=== PATIENT | male | born 1950 | race Caucasian/White ===

== ENCOUNTER 2020-11-10 08:00 | Outpatient (CLI) | payer OTHER ==
[2020-11-10 15:10] LABS: BASOPHILS # (AUTO) 0.1 10^3/uL (0.0-0.1); BASOPHILS % (AUTO) 0.7 %; EOSINOPHILS # (AUTO) 0.1 10^3/uL (0.0-0.7); EOSINOPHILS % (AUTO) 0.7 %; HCT - HEMATOCRIT 51.1 % (42.0-52.0); LYMPHOCYTES # (AUTO) 0.8 10^3/uL (1.5-3.5); LYMPHOCYTES % (AUTO) 12.2 %; MEAN CORPUSCULAR HEMOGLOBIN 31.9 pg (27.0-31.0); MEAN CORPUSCULAR HGB CONC 33.3 g/dL (32.0-36.0); MEAN CORPUSCULAR VOLUME 95.9 fL (80.0-94.0); MEAN PLATELET VOLUME 9.6 fL (7.4-11.4); MONOCYTES # (AUTO) 0.5 10^3/uL (0.0-1.0); MONOCYTES % (AUTO) 6.8 %; NEUTROPHILS # (AUTO) 5.4 10^3/uL (1.5-6.6); NEUTROPHILS % (AUTO) 79.3 %; PLT - PLATELET COUNT 307 10^3/uL (130-450); RED BLOOD COUNT 5.33 10^6/uL (4.70-6.10); RED CELL DISTRIBUTION WIDTH 12.8 % (12.0-15.0); WHITE BLOOD COUNT 6.8 x10^3/uL (4.8-10.8)
[2020-11-10 15:16] LABS: CALCIUM 9.3 mg/dL (8.5-10.3); CREATININE 0.8 mg/dL (0.6-1.2); POTASSIUM 4.5 mmol/L (3.5-5.0)
== END 2020-11-10 23:59 | disposition home or self-care (01) ==
LOC: LAB.S 08:00
PROVIDERS: ATTEND Emergency Medicine
DX: I10 Essential (primary) hypertension (principal)
CPT/HCPCS: 36415; 80048; 81001; 85025; 87086

== ENCOUNTER 2021-06-01 08:32 | Outpatient (CLI) | payer OTHER | END 2021-06-01 08:33 | disposition critical access hospital (66) | LOC: EMS 08:32 | DX: R53.1 Weakness (principal); R47.81 Slurred speech; R27.8 Other lack of coordination | CPT/HCPCS: A0425; A0429 ==

== ENCOUNTER 2021-06-01 09:11 | Inpatient (IN) | payer OTHER ==
[2021-06-01] MEDS ORDERED: SODIUM CHLORIDE 0.9% 1,000 ML IV STA (09:22)
--- NOTE | 2021-06-01 09:24 | ED Physician Documentation ---
PD HPI FOCAL NEURO - Stated complaint Stated Complaint: STROKE LIKE SX - History obtained from History obtained from: Patient - History of Present Illness Timing - onset: Yesterday (afternoon yesterday) Timing - duration: Days (1) Timing - details: Still present Severity of deficit: Mild Weakness: Hand, Right. No: Face, Leg Numbness: Face, Hand, Right. No: Leg Associated symptoms: Other (trouble articulating words). No: Headache, Nausea / vomiting, Head injury, Chest pain Contributing factors: negative: Anticoagulated, Atrial fibrillation Baseline status: positive: A&OX3, ambulatory, indep Similar symptoms before: Has not had sx before Recently seen: Not recently seen Review of Systems Constitutional: denies: Fever, Chills Nose: denies: Rhinorrhea / runny nose, Congestion Throat: denies: Sore throat Cardiac: denies: Chest pain / pressure, Palpitations Respiratory: denies: Dyspnea, Cough GI: denies: Abdominal Pain, Nausea, Vomiting Neurologic: reports: Focal weakness (right arm fumbly use and some weakness. Mild right leg maybe with walking. DYsarthria with talking. He states was able to swallow.). denies: Altered mental status, Headache, Head injury, LOC Psychiatric: denies: Depressed Endocrine: denies: Weight loss, Easy bruising / bleeding Immunocompromised: denies: Immunocompromised PD PAST MEDICAL HISTORY - Past Medical History Cardiovascular: None Respiratory: None Endocrine/Autoimmune: None - Allergies Allergies/Adverse Reactions: Allergies Allergy/AdvReac Type Severity Reaction Status Date / Time No Known Drug Allergies Allergy Verified 06/01/21 09:21 - Living Situation Living Situation: reports: Alone Living Arrangement: reports: At home - Social History Does the pt smoke?: Yes Does the pt drink ETOH?: No Does the pt have substance abuse?: No - Family History Family history: reports: CAD - Immunizations Immunizations are current?: Yes - POLST Patient has POLST: No PD ED PE NORMAL - Vitals Vital signs reviewed: Yes - General General: Alert and oriented X 3, No acute distress, Well developed/nourished - HEENT HEENT: Atraumatic, PERRL, EOMI, Moist mucous membranes, Pharynx benign - Neck Neck: Supple, no meningeal sign, No adenopathy, No bruit - Cardiac Cardiac: RRR, No murmur - Respiratory Respiratory: Clear bilaterally - Abdomen Abdomen: Soft, Non tender - Derm Derm: Normal color, Warm and dry - Neuro Neuro: Alert and oriented X 3, Other (right arm with good gross motor of squeezing and pull, but is fumbly with fine motor such as grasping and writing. Foot gross motore good. heel to perez is wobbly. ). No: manufacturing clerk 2-12 intact (trouble with word articulation. ), Normal speech (content is good, but he does have trouble with articulation with some slurring of words. ) NIHSS - Level of Consciousness Level of consciousness: (0) Alert, Keenly responsive LOC Questions: (0) Answers both Q's correct LOC Commands: (0) Performs both correctly - Gaze Best Gaze: (0) Normal - Visual Visual: (0) No loss - Facial Palsy Facial Palsy: (0) Normal, symmetrical movement - Motor Arms (both separate) Motor Arm (right): (0) No drift Motor Arm (left): (0) No drift - Motor Legs (both separate) Motor Leg (right): (0) No drift Motor Leg (left): (0) No drift - Limb Ataxia Limb Ataxia: (2) Present in 2 limbs - Sensory Sensory: (0) Normal - Best Language Best Language: (0) No aphasia - Dysarthria Dysarthria: (1) [id number]-[id number] dysarthria - Extinction and Inattention (formally neg Extinction and inattention: (0) No abnormality - Total Score/Results Total Score/Result: 3 Results - Vitals Vitals: Vital Signs - 24 hr 06/01/21 06/01/21 09:21 11:28 Temperature 37.0 C Heart Rate 92 70 Respiratory 18 13 Rate Blood Pressure 169/84 H 142/72 H O2 Saturation 99 100 Oxygen O2 Source Room air - EKG (time done) 09:29 Rate: Rate (enter#) (97) Rhythm: NSR [place]: Normal Intervals: Normal SD QRS: Normal, LVH Ischemia: Normal ST segments. No: ST elevation c/w ischemia, ST depression - Labs Labs: Laboratory Tests 06/01/21 06/01/21 06/01/21 09:32 09:32 09:32 WBC 6.4 RBC 4.88 Hgb 15.2 Hct 43.8 MCV 89.8 MCH 31.1 H MCHC 34.7 RDW 12.2 Plt Count 233 MPV 9.5 Neut # (Auto) 5.5 Lymph # (Auto) 0.5 L [place] # (Auto) 0.4 Eos # (Auto) 0.0 Baso # (Auto) 0.0 Absolute Nucleated RBC 0.00 Nucleated RBC % 0.0 ESR 6 Sodium 131 L Potassium 3.8 Chloride 97 L Carbon Dioxide 25 Anion Gap 9.0 BUN 10 Creatinine 0.7 Estimated GFR (MDRD) 112 Glucose 114 H Calcium 8.9 Magnesium 2.1 Total Bilirubin 0.9 AST 24 ALT 22 Alkaline Phosphatase 95 Total Protein 7.0 Albumin 4.4 Globulin 2.6 Albumin/Globulin Ratio 1.7 Lipase 37 Ethyl Alcohol < 5.0 - Rads (name of study) head CT angio Radiology: Prelim report reviewed (no acute findings. Possible stenosis of distal vertebral artery. No mass effects. no bleed. ), See rad report neck angio Radiology: Prelim report reviewed (no stenoses. ), See rad report PD MEDICAL DECISION MAKING - ED course Complexity details: reviewed results, re-evaluated patient (still same symptoms. ), considered differential (persistent symptoms since yesterday afternoon. Presume small infarct versus bleed vs MS or other structural process. ), d/w patient, d/w solar sales consultant (talke with hospitalist about admission for further workup.) Departure - Departure Disposition: 66 [facility] DC/Xfer Clinical Impression: Dysarthria, Right arm weakness Cerebrovascular accident (CVA) Qualifiers: CVA mechanism: unspecified Qualified Code(s): I63.9 - Cerebral infarction, unspecified Condition: Stable Record reviewed to determine appropriate education?: Yes Discharge Date/Time: 06/01/21 14:10
[2021-06-01] MEDS ORDERED: IOVERSOL 320 100 ML VIAL IVP ONE ×2 (09:33→13:26)
[2021-06-01 09:37] LABS: BASOPHILS % (AUTO) 0.3 %; EOSINOPHILS % (AUTO) 0.3 %; HCT - HEMATOCRIT 43.8 % (42.0-52.0); HGB - HEMOGLOBIN 15.2 g/dL (14.0-18.0); LYMPHOCYTES # (AUTO) 0.5 10^3/uL (1.5-3.5); LYMPHOCYTES % (AUTO) 7.1 %; MEAN CORPUSCULAR HEMOGLOBIN 31.1 pg (27.0-31.0); MEAN CORPUSCULAR HGB CONC 34.7 g/dL (32.0-36.0); MEAN CORPUSCULAR VOLUME 89.8 fL (80.0-94.0); MEAN PLATELET VOLUME 9.5 fL (7.4-11.4); MONOCYTES # (AUTO) 0.4 10^3/uL (0.0-1.0); MONOCYTES % (AUTO) 6.4 %; NEUTROPHILS # (AUTO) 5.5 10^3/uL (1.5-6.6); NEUTROPHILS % (AUTO) 85.7 %; PLT - PLATELET COUNT 233 10^3/uL (130-450); RED BLOOD COUNT 4.88 10^6/uL (4.70-6.10); RED CELL DISTRIBUTION WIDTH 12.2 % (12.0-15.0); WHITE BLOOD COUNT 6.4 x10^3/uL (4.8-10.8)
[2021-06-01 09:49] LABS: ALBUMIN 4.4 g/dL (3.2-5.5); ALBUMIN/GLOBULIN RATIO 1.7 (1.0-2.2); ALKALINE PHOSPHATASE 95 IU/L (42-121); ALT ALANINE AMINOTRANSFERASE 22 IU/L (10-60); AST ASPARTATE AMINOTRANSFERASE 24 IU/L (10-42); BILIRUBIN,TOTAL 0.9 mg/dL (0.2-1.0); BUN - BLOOD UREA NITROGEN 10 mg/dL (6-20); CALCIUM 8.9 mg/dL (8.5-10.3); CARBON DIOXIDE - CO2 25 mmol/L (21-32); CHLORIDE 97 mmol/L (101-111); CREATININE 0.7 mg/dL (0.6-1.2); ETOH - ETHANOL < 5.0 mg/dL; GFR - MDRD 112 (>89); GLUCOSE 114 mg/dL (70-100); LIPASE 37 U/L (22-51); MAGNESIUM 2.1 mg/dL (1.7-2.8); POTASSIUM 3.8 mmol/L (3.5-5.0); SODIUM 131 mmol/L (135-145)
--- NOTE | 2021-06-01 12:19 | CT Report ---
PROCEDURE: ANGIO HEAD W/WO INDICATIONS: L sided facial droop CONTRAST: IV CONTRAST: Optiray 320 ml: 80 PO CONTRAST: *NO PO CONTRAST TECHNIQUE: Precontrast 4.5 mm thick angled axial sections acquired from the foramen magnum to the vertex. Afte r the administration of intravenous contrast, 1 mm thick sections acquired through the [place] of [place] is. Postcontrast 4.5 mm thick sections then re-acquired from the foramen magnum to the vertex. 3-di mensional nokmaar-ktrgjabpz-cwsaxuaqqn (MIP) and/or volume rendering reformats were acquired of the c entral intracranial vasculature. For radiation dose reduction, the following was used: automated ex posure control, adjustment of mA and/or kV according to patient size. COMPARISON: FINDINGS: Image quality: Excellent. Anterior circulation: Intracranial internal carotid arteries are normal in size and flow. Mild supr aclinoid internal carotid artery calcifications and subsequent stenosis are noted. The flow within th e paired anterior cerebral arteries is normal and symmetric. The flow within the middle cerebral art eries is normal and symmetric. The anterior communicating artery is seen. No aneurysms are seen. Posterior circulation: Visualized portions of the vertebral arteries demonstrate normal caliber, and join to form a normal appearing basilar artery. Flow within the posterior cerebral arteries is norm al and symmetric. No aneurysms are seen. There is a left vertebral artery dominance. 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 The ventricular system and cortical sulci demonstrate atrophy, consistent for patient's stated age. There are areas of hypodensity in the periventricular and subcortical white matter. There is no acut e intra or extra-axial fluid collection. No acute hemorrhage, mass lesion or midline shift. Brainst em is unremarkable. Globes are symmetrical. Sinuses are aerated. Osseous structures are intact. IMPRESSION: 1. No acute intracranial process. 2. Mild atrophy and chronic microvascular ischemic changes. 3. 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 Focus of high-grade stenosis/distal occlusion cannot be excluded. Reviewed by: Ale Perdomo MD on 06/01/2021 12:17 PM PST Approved by: Ale Perdomo MD on 06/01/2021 12:17 PM PST Station ID: [id number]
--- NOTE | 2021-06-01 12:20 | CT Report ---
PROCEDURE: ANGIO NECK W INDICATIONS: L sided facial droop, L neck pain CONTRAST: IV CONTRAST: Optiray 320 ml: 80 PO CONTRAST: *NO PO CONTRAST TECHNIQUE: After the administration of intravenous contrast, 1.5 mm axial sections acquired from the aortic arch to the [place] of [place]. Coronal 3-D maximum intensity projection (MIP) and/or volume rendering ref ormats were then performed. For radiation dose reduction, the following was used: automated exposur e control, adjustment of mA and/or kV according to patient size. COMPARISON: CTA. 06/01/2021 FINDINGS: Image quality: Excellent. The origins of the left and right common, right internal and bilateral external carotid arteries demo nstrate no areas of hemodynamically significant stenosis, vascular occlusion or aneurysmal dilation. Less than 50% stenosis is present at the origin of the left internal carotid artery. Origin of the le ft vertebral artery and right vertebral artery demonstrate no areas of hemodynamically significant st enosis, vascular occlusion or aneurysmal dilation. 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 Focus of high-grade stenosis/occlusion cannot be excluded particula rly at the distal most aspect. Aortic arch demonstrates conventional anatomy. Limited, visualized por tions of the subclavian vasculature are unremarkable. IMPRESSION: There are no areas of hemodynamically significant stenosis, vascular occlusion or aneurysmal dilation within the neck vasculature. The estimate of stenosis included in the report of the imaging study was calculated using the NASCET method CLINICAL RECOMMENDATION STATEMENTS: In patients <35 years with an ITN detected on CT, MRI, or extrathyroidal ultrasound, the Committee re commends further evaluation with dedicated thyroid ultrasound if the nodule is "e1 cm and has no susp icious imaging features, and if the patient has normal life expectancy. In patients "e35 years with an ITN detected on CT, MRI, or extrathyroidal ultrasound, the Committee r ecommends further evaluation with dedicated thyroid ultrasound if the nodule is "e1.5 cm and has no s uspicious imaging features, and if the patient has normal life expectancy. (ACR, 2014) Reviewed by: Ale Perdomo MD on 06/01/2021 12:19 PM PST Approved by: Ale Perdomo MD on 06/01/2021 12:19 PM PST Station ID: [id number]
[2021-06-01] MEDS ORDERED: ASPIRIN CHEW 81 MG TABLET PO STA (12:59)
[2021-06-01] MEDS ORDERED: SODIUM CHLORIDE FLUSH 0.9% 10 ML SYRINGE IVP PRN (13:00)
[2021-06-01] MEDS ORDERED: ONDANSETRON 4 MG/2 ML VIAL IVP PRN (13:10)
[2021-06-01] MEDS ORDERED: ACETAMINOPHEN 325 MG TABLET PO PRN (13:10)
--- NOTE | 2021-06-01 13:26 | HISTORY & PHYSICAL EXAMINATION ---
Chief Complaint - Chief Complaint Chief Complaint: dysarthria and right weakness History of Present Illness - Admitted From Admitted From:: Medical floor - History Obtained From Records Reviewed: [employer] and ER note History obtained from: pt Exam Limitations: no - History of Present Illness HPI Comment/Other: This is 71-yrs old male with significant medical history of HTN, who was brought by EMS, complain of dysarthria and right side weakness since yesterday. pt report since yesterday afternoon, he can not speak, now pt still present slurred speech. he also report he can not write with his right hand and felt weakness as well. pt report he has no issue to swallow meal. pt report he has no issue to walk as far. Pt report he still smoke cigarette but he denies taking alcohol. Pt also denies chest pain, headache, fever, chill, shortness of breath. CTA of head and neck no acute Intracranial process. Routine laboratory test was unremarkable except sodium 131. In ER, Patient is afebrile, otherwise patient is hemodynamic stable. Discussed the care goal with the patient, patient hope to have DNR History - Past Medical History Cardiovascular: reports: Hypertension - Family & Social History Family History: Mother: , Father: Family History Comment/Other: Patient's father at age 38 with stroke, patient's mother at age 91 likely due to aging Social History Notes: Patient report he is still smoking with cigarette, he denies alcohol or drug issue Meds/Allgy - Allergies Allergies/Adverse Reactions: Allergies Allergy/AdvReac Type Severity Reaction Status Date / Time No Known Drug Allergies Allergy Verified 06/01/21 09:21 Review of Systems - Constitutional Constitutional: denies: Fever, Chills - Eyes Eyes: denies: Pain - Ears, Nose & Throat Ears, Nose & Throat: denies: Ear pain - Cardiovascular Cariovascular: denies: Palpitations, Chest pain, Syncope, Exertional dyspnea, Decr. exercise tolerance - Respiratory Respiratory: denies: Cough, Wheezing, SOB at rest, SOB with exertion - Gastrointestinal Gastrointestinal: denies: Abdominal pain, Diarrhea, Nausea, Vomiting - Neurological Neurological: reports: Focal weakness, Incoordination, Slurred speech. denies: Headache, Dizziness, Abnormal gait, Seizures - Psychiatric Psychiatric: denies: Depression Prior Level of Functionality: Full independent Exam - Vital Signs Vital Signs: Vital Signs x48h Temp Pulse Resp BP Pulse Ox 06/01/21 11:28 70 13 142/72 H 100 06/01/21 09:21 37.0 C 92 18 169/84 H 99 - Physical Exam General Appearance: positive: No acute distress, Alert. negative: Lethargic Eyes Bilateral: positive: Normal inspection, No lid inflammation ENT: positive: ENT inspection nml, No signs of dehydration. negative: Purulent nasal drainage Neck: positive: Nml inspection, Trachea midline. negative: Thyromegaly, Tracheal deviation Respiratory: positive: Chest non-tender, No respiratory distress, Other (Bilaterally diminished lung sound) Cardiovascular: positive: Regular rate & rhythm, No murmur. negative: Tachycardia, Bradycardia, Systolic murmur, Diastolic murmur Peripheral Pulses: positive: 2+ Abdomen: positive: Non-tender, Nml bowel sounds, No distention. negative: Tenderness Back: positive: Nml inspection Skin: positive: Color nml, Warm, Dry. negative: Cyanosis Extremities: positive: Non-tender, Nml appearance, Other (Weakness on right upper extremity) Neurologic/Psychiatric: positive: Oriented x3, Sensation nml, Mood/affect nml, Weakness, Slurred/abnml speech. negative: Motor nml (Right upper extremity weakness), Disoriented to person, Disoriented to place, Disoriented to time, Sensory loss, Facial droop, Depressed mood/affect Sepsis Event Note (H) - Evaluation Current Stage of Sepsis: Ruled out Conclusion/Plan - Problem List (1) Cerebrovascular accident (CVA) Conclusion/Plan: pt had dysarthria and right upper extremity weakness on yesterday afternoon, pt still present dysarthria and right upper extremity weakness now, TPA was not given at ER because of time passed. CTA of head and neck reveal no acute proc ess. EKG show sinus rhythm. Patient was give one-time aspirin in the ER. Plan: continue Aspirin and add Lipitor pt report he has no issue for swallow, order regular diet now, will closely monitor to see if need adjust for his diet. will finish MRI of brain and ECHO study PT/OT for pt order Tele monitor pt, and lipid panel study. Qualifiers: CVA mechanism: unspecified Qualified Code(s): I63.9 - Cerebral infarction, unspecified (2) Hyponatremia Conclusion/Plan: Na is 131, Pt was given one liter of NS in ER, will give pt another one liter of NS. it is likely caused by hypovolemia. continue lab monitor (3) HTN (hypertension) Conclusion/Plan: Patient take lisinopril in the home, we will hold lisinopril, add hydralazine as needed, let pt rise his blood pressure for his stroke at first 24 hours. - Lab Results Fish Bones: 06/01/21 09:32 06/01/21 09:32 Core Measures - Anticipated LOS I expect patient to be DC'd or transferred within 96 hours.: Yes - DVT/VTE - Prophylaxis VTE/DVT Device ordered at admit?: Yes VTE/DVT Prophylaxis med ordered at admit?: Yes
[2021-06-01 14:24] LABS: B. PARAPERTUSSIS- RESP PCR PAN NOT DETECTED; B. PERTUSSIS- RESP PCR PANEL NOT DETECTED; C. PNEUMONIAE- RESP PCR PANEL NOT DETECTED; CORONAVIRUS 229E-RESP PCR NOT DETECTED; CORONAVIRUS HKU1-RESP PCR NOT DETECTED; CORONAVIRUS NL63-RESP PCR NOT DETECTED; CORONAVIRUS OC43-RESP PCR NOT DETECTED; HUMAN METAPNEUMOVIRUS NOT DETECTED; INFLUENZA A- RESP PCR PANEL NOT DETECTED; INFLUENZA B - RESP PCR PANEL NOT DETECTED; M. PNEUMONIAE- RESP PCR PANEL NOT DETECTED; PARAINFLUENZA VIRUS 1 NOT DETECTED; PARAINFLUENZA VIRUS 2 NOT DETECTED; PARAINFLUENZA VIRUS 3 NOT DETECTED; PARAINFLUENZA VIRUS 4 NOT DETECTED; RHINOVIRUS/ENTEROVIRUS NOT DETECTED; RSV- RESP PCR PANEL NOT DETECTED; SARS-CoV-2 -RESP PCR PANEL NOT DETECTED
[2021-06-01] MEDS ORDERED: LORazepam 2 MG/ML VIAL IVP STA (14:50)
[2021-06-01] MEDS ORDERED: hydrALAZINE INJ 20 MG/ML VIAL IVP PRN (14:52)
[2021-06-01] MEDS ORDERED: SODIUM CHLORIDE 0.9% 1,000 ML IV SCH (15:00)
[2021-06-01] MEDS: SODIUM CHLORIDE FLUSH 0.9% 10 ML SYRINGE IVP SCH ×2 (16:24→23:46)
--- NOTE | 2021-06-01 17:33 | MRI Report ---
PROCEDURE: Brain W/O INDICATIONS: stroke TECHNIQUE: Noncontrast axial T1 spin echo, axial T2 fast spin echo, sagittal and axial FLAIR, coronal T2 fast sp in echo, axial gradient echo, axial diffusion and ADC through the brain. COMPARISON: None. FINDINGS: Cerebrum, Cerebellum and Brainstem: Focal restricted diffusion noted in the left lentiform nucleus me asuring 1.6 cm. Mild cerebral and cerebellar volume loss as well as moderate multifocal hyperintensi ties in the deep and subcortical white matter present. No intracranial hemorrhage, mass lesion or mi dline shift. Basal cisterns and foramen magnum contain appropriate anatomy and vascular flow voids. No evidence of dural or leptomeningeal thickening. Ventricles: Appropriate in size and position. No hydrocephalus. Skull Base: The bony sella, pituitary gland and infundibulum unremarkable. Clivus and craniovertebr al relationships are appropriate. Visualized portions of the seventh and eighth cranial nerve comple xes and internal auditory canals are within normal limits. Scalp and Calvarium: The scalp is unremarkable. Underlying calvarium has an appropriate marrow sign al. Paranasal Sinuses: Visualized portions of the paranasal sinuses are clear. Mastoids: Unremarkable as visualized. No mastoid effusion present. Orbits: The orbits, globes and ocular muscles are unremarkable. Bilateral intraocular lens replacem ents noted. IMPRESSION: 1. Focal left basal ganglia infarct, acute to subacute. 2. Atrophy and white matter chronic ischemic change without acute hemorrhage or mass effect. Reviewed by: Michael Belcher MD on 06/01/2021 4:32 PM [place] Approved by: Michael Belcher MD on 06/01/2021 4:32 PM [place] Station ID: [id number]
[2021-06-01] MEDS ORDERED: guaiFENesin/DEXTROMETHORPHAN 10 ML UDC PO PRN (19:49)
[2021-06-01] MEDS ORDERED: ATORVASTATIN 40 MG TABLET PO SCH (21:00)
[2021-06-02 05:25] LABS: BASOPHILS % (AUTO) 0.5 %; EOSINOPHILS # (AUTO) 0.1 10^3/uL (0.0-0.7); EOSINOPHILS % (AUTO) 1.8 %; HCT - HEMATOCRIT 40.6 % (42.0-52.0); HGB - HEMOGLOBIN 13.7 g/dL (14.0-18.0); LYMPHOCYTES # (AUTO) 0.8 10^3/uL (1.5-3.5); LYMPHOCYTES % (AUTO) 21.1 %; MEAN CORPUSCULAR HEMOGLOBIN 30.6 pg (27.0-31.0); MEAN CORPUSCULAR HGB CONC 33.7 g/dL (32.0-36.0); MEAN CORPUSCULAR VOLUME 90.6 fL (80.0-94.0); MEAN PLATELET VOLUME 9.8 fL (7.4-11.4); MONOCYTES # (AUTO) 0.4 10^3/uL (0.0-1.0); MONOCYTES % (AUTO) 10.3 %; NEUTROPHILS # (AUTO) 2.5 10^3/uL (1.5-6.6); PLT - PLATELET COUNT 201 10^3/uL (130-450); RED BLOOD COUNT 4.48 10^6/uL (4.70-6.10); RED CELL DISTRIBUTION WIDTH 12.5 % (12.0-15.0); WHITE BLOOD COUNT 3.8 x10^3/uL (4.8-10.8)
[2021-06-02 05:31] LABS: CALCIUM 8.6 mg/dL (8.5-10.3); CREATININE 0.6 mg/dL (0.6-1.2); POTASSIUM 4.5 mmol/L (3.5-5.0)
[2021-06-02 05:40] LABS: CHOL/HDL RATIO 4.3 (<5.0); CHOLESTEROL 175 mg/dL; HDL CHOLESTEROL 41 mg/dL; LDL CHOLESTEROL,CALCULATED 124 mg/dL; TRIGLYCERIDES 49 mg/dL; VLDL CHOLESTEROL 10 mg/dL
[2021-06-02] MEDS: ASPIRIN 325 MG TABLET PO SCH (08:41)
[2021-06-02] MEDS: ENOXAPARIN 40 MG/0.4 ML SYRINGE SUBQ SCH (08:41)
--- NOTE | 2021-06-02 09:56 | PHARMACY PROGRESS NOTE ---
- Best Possible Medication History Admit Date and Time: 06/01/21 1300 Processed by: Pharmacy Medication History completed: Yes Patient Interview: Completed Secondary Source(s): Insurance records As the person ultimately responsible for medication therapy, providers are able to order a medication from an existing home medication list in [facility] via the "Reconcile Routine" prior to Confirmation of that medication by technical sales support specialist. Such practice is discouraged except when the physician, in their clinical judgment, deems that a medical need exists for a medication without regard to previous use.
[2021-06-02] MEDS: SODIUM CHLORIDE FLUSH 0.9% 10 ML SYRINGE IVP SCH ×2 (10:05→17:32)
[2021-06-02] MEDS: PANTOPRAZOLE 40 MG TABLET PO SCH (10:05)
--- NOTE | 2021-06-02 11:10 | PROVIDER PROGRESS NOTE ---
Assessment/Plan - Problem List (1) Cerebrovascular accident (CVA) Qualifiers: CVA mechanism: unspecified Qualified Code(s): I63.9 - Cerebral infarction, unspecified Assessment/Plan: 06/02 pt still present dysarthria and right upper extremity weakness, now PT/OT even pt is unsteady. MRI of brain did show Focal left basilar ganglia infarct, acute to subacute. continue aspirin and Lipitor continue PT/OT, order ST for pt's dysarthria pt report he is willing to d/c to SNF as needed, consult with social work associate for d/c planning. pt had dysarthria and right upper extremity weakness on yesterday afternoon, pt still present dysarthria and right upper extremity weakness now, TPA was not given at ER because of time passed. CTA of head and neck reveal no acute process. EKG show sinus rhythm. Patient was give one-time aspirin in the ER. Plan: continue Aspirin and add Lipitor pt report he has no issue for swallow, order regular diet now, will closely monitor to see if need adjust for his diet. will finish MRI of brain and ECHO study PT/OT for pt order Tele monitor pt, and lipid panel study. (2) Hyponatremia Conclusion/Plan: 06/02 resolved. Na is 131, Pt was given one liter of NS in ER, will give pt another one liter of NS. it is likely caused by hypovolemia. continue lab monitor (3) HTN (hypertension) Conclusion/Plan: 06/02 resume home Lisinopril, vital sign monitor Patient take lisinopril in the home, we will hold lisinopril, add hydralazine as needed, let pt rise his blood pressure for his stroke at first 24 hours. - Current Meds Current Meds: Current Medications Generic Name Dose Route Start Last Admin Trade Name Freq PRN Reason Stop Dose Admin Aspirin 325 mg 06/02/21 08:00 06/02/21 08:41 Aspirin 325 Mg Tablet PO 325 mg DAILYWM JUAN Administration Enoxaparin Sodium 40 mg 06/02/21 09:00 06/02/21 08:41 Enoxaparin 40 Mg/0.4 Ml Syringe SUBQ 40 mg DAILY JUAN Administration Guaifenesin 10 ml 06/01/21 19:49 06/01/21 20:27 Guaifenesin/Dextromethorphan 10 Ml Udc PO 10 ml Q6HR PRN Administration Cough Pantoprazole Sodium 40 mg 06/02/21 09:00 06/02/21 10:05 Pantoprazole 40 Mg Tablet PO 40 mg QDAC JUAN Administration Sodium Chloride 10 ml 06/01/21 17:00 06/02/21 10:05 Sodium Chloride Flush 0.9% 10 Ml Syringe IVP 10 ml 0100,0900,1700 JUAN Administration - Lab Result Fish Bone Diagrams: 06/02/21 05:14 06/02/21 05:14 - Additional Planning My Orders: My Active Orders 06/01/21 13:00 Activity Orders [RC] Q2HR IO [RC] IOSHIFT Initiate Bowel Care Protocol [RC] .protocol Initiate Line Care Protocol [RC] QSHIFT Initiate Personal Care Protoco [RC] .protocol Telemetry- [RC] Q4HR Vital Signs [RC] Q4HR Sodium Chloride Flush 0.9% [Normal Saline Flush 0.9%] 10 ml IVP PRN PRN Code Status [OTHERS] Routine Condition of Patient [OTHERS] Routine DVT Prophylaxis [OTHERS] Routine 06/01/21 13:03 IV Insert [RC] .ONCE 06/01/21 13:05 SCDs [RC] QSHIFT 06/01/21 13:10 Acetaminophen [Tylenol] 650 mg PO Q4HR PRN Ondansetron Inj [Zofran Inj] 4 mg IVP Q6HR PRN 06/01/21 13:14 Social Work Consult [CONS] Routine Evaluate and Treat OT [OT] Routine Evaluate and Treat PT [PT] Routine 06/01/21 14:36 Code Status [OTHERS] Routine 06/01/21 14:52 hydrALAZINE INJ [Apresoline Inj] 10 mg IVP QID PRN 06/01/21 Dinner Regular Diet [DIET] 06/01/21 17:00 Sodium Chloride Flush 0.9% [Normal Saline Flush 0.9%] 10 ml IVP 0100,0900,1700 06/02/[address] [ST] Routine 06/02/21 08:00 Aspirin [Lenard] 325 mg PO DAILYWM 06/02/21 09:00 Enoxaparin [Lovenox] 40 mg SUBQ DAILY Pantoprazole [Protonix] 40 mg PO QDAC 06/02/21 13:25 Echo Transthoracic Complete [ECHO] Stat 06/02/21 21:00 Atorvastatin [Lipitor] 40 mg PO QPM 06/03/21 05:00 BMP - BASIC METABOLIC PANEL [CHEM] DAILYLAB CBC - COMP BLD CT W/AUTO DIFF [HEME] DAILYLAB 06/03/21 09:00 Lisinopril [Zestril] 10 mg PO DAILY 06/04/21 05:00 BMP - BASIC METABOLIC PANEL [CHEM] DAILYLAB CBC - COMP BLD CT W/AUTO DIFF [HEME] DAILYLAB 06/05/21 05:00 BMP - BASIC METABOLIC PANEL [CHEM] DAILYLAB CBC - COMP BLD CT W/AUTO DIFF [HEME] DAILYLAB 06/06/21 05:00 BMP - BASIC METABOLIC PANEL [CHEM] DAILYLAB CBC - COMP BLD CT W/AUTO DIFF [HEME] DAILYLAB 06/07/21 05:00 BMP - BASIC METABOLIC PANEL [CHEM] DAILYLAB CBC - COMP BLD CT W/AUTO DIFF [HEME] DAILYLAB Subjective - Subjective Patient Reports: Resting Comfortably Objective Vital Signs: Vital Signs - 24 hr 06/01/21 06/01/21 06/01/21 11:28 13:00 13:59 Temperature Heart Rate 70 87 80 Heart Rate [ Brachial] Respiratory 13 14 14 Rate Blood Pressure 142/72 H 153/75 H 140/77 H Blood Pressure [Right Brachial artery] O2 Saturation 100 100 100 06/01/21 06/01/21 06/01/21 14:00 15:34 20:21 Temperature 36.3 C L 36.3 C L 36.5 C Heart Rate Heart Rate [ 71 68 Brachial] Respiratory 18 19 16 Rate Blood Pressure Blood Pressure 131/107 H 138/68 H 124/65 [Right Brachial artery] O2 Saturation 100 95 97 06/01/21 06/02/21 06/02/21 23:47 05:00 07:54 Temperature 36.5 C 36.7 C 36.4 C L Heart Rate Heart Rate [ 68 77 82 Brachial] Respiratory 16 18 16 Rate Blood Pressure Blood Pressure 126/64 150/81 H 143/70 H [Right Brachial artery] O2 Saturation 96 95 96 Oxygen O2 Source Room air I&O (Last 24 Hrs): Intake and Output Totals x24h 05/31/21 06/01/21 06/02/21 23:59 23:59 23:59 Intake Total 9112.974 6150.723 Output Total 1200 300 Balance 215.277 784.723 General: Alert, Oriented x3, Cooperative, No acute distress HEENT: Atraumatic Neck: Supple Lymphatic: no adenopathy Neuro: Alert, Focal Deficits, Oriented Times 3, Other (dysarthria, weakness on right upper and lower extremities) Cardiovascular: Regular rate, Normal S1, Normal S2 Respiratory: Chest non-tender, No respiratory distress Abdomen: Normal bowel sounds, Soft, No tenderness Extremities: Normal pulses - Results Results: Laboratory Results WBC 3.8 x10^3/uL (4.8-10.8) L 06/02/21 05:14 RBC 4.48 10^6/uL (4.70-6.10) L 06/02/21 05:14 Hgb 13.7 g/dL (14.0-18.0) L 06/02/21 05:14 Hct 40.6 % (42.0-52.0) L 06/02/21 05:14 MCV 90.6 fL (80.0-94.0) 06/02/21 05:14 MCH 30.6 pg (27.0-31.0) 06/02/21 05:14 MCHC 33.7 g/dL (32.0-36.0) 06/02/21 05:14 RDW 12.5 % (12.0-15.0) 06/02/21 05:14 Plt Count 201 10^3/uL (130-450) 06/02/21 05:14 MPV 9.8 fL (7.4-11.4) 06/02/21 05:14 Neut # (Auto) 2.5 10^3/uL (1.5-6.6) 06/02/21 05:14 Lymph # (Auto) 0.8 10^3/uL (1.5-3.5) L 06/02/21 05:14 [place] # (Auto) 0.4 10^3/uL (0.0-1.0) 06/02/21 05:14 Eos # (Auto) 0.1 10^3/uL (0.0-0.7) 06/02/21 05:14 Baso # (Auto) 0.0 10^3/uL (0.0-0.1) 06/02/21 05:14 Absolute Nucleated RBC 0.00 x10^3/uL 06/02/21 05:14 Nucleated RBC % 0.0 /100WBC 06/02/21 05:14 ESR 6 mm/Hr (0-20) 06/01/21 09:32 Sodium 139 mmol/L (135-145) 06/02/21 05:14 Potassium 4.5 mmol/L (3.5-5.0) 06/02/21 05:14 Chloride 106 mmol/L (101-111) 06/02/21 05:14 Carbon Dioxide 23 mmol/L (21-32) 06/02/21 05:14 Anion Gap 10.0 (6-13) 06/02/21 05:14 BUN 10 mg/dL (6-20) 06/02/21 05:14 Creatinine 0.6 mg/dL (0.6-1.2) 06/02/21 05:14 Estimated GFR (MDRD) 134 (>89) 06/02/21 05:14 Glucose 98 mg/dL (70-100) 06/02/21 05:14 Calcium 8.6 mg/dL (8.5-10.3) 06/02/21 05:14 Magnesium 2.1 mg/dL (1.7-2.8) 06/01/21 09:32 Total Bilirubin 0.9 mg/dL (0.2-1.0) 06/01/21 09:32 AST 24 IU/L (10-42) 06/01/21 09:32 ALT 22 IU/L (10-60) 06/01/21 09:32 Alkaline Phosphatase 95 IU/L (42-121) 06/01/21 09:32 Total Protein 7.0 g/dL (6.7-8.2) 06/01/21 09:32 Albumin 4.4 g/dL (3.2-5.5) 06/01/21 09:32 Globulin 2.6 g/dL (2.1-4.2) 06/01/21 09:32 Albumin/Globulin Ratio 1.7 (1.0-2.2) 06/01/21 09:32 Triglycerides 49 mg/dL (-149) 06/02/21 05:14 Cholesterol 175 mg/dL (-199) 06/02/21 05:14 LDL Cholesterol, Calc 124 mg/dL (-129) 06/02/21 05:14 VLDL Cholesterol 10 mg/dL 06/02/21 05:14 HDL Cholesterol 41 mg/dL (60-) L 06/02/21 05:14 LDL/HDL Ratio 3.0 (<3.6) 06/02/21 05:14 Cholesterol/HDL Ratio 4.3 (<5.0) 06/02/21 05:14 Lipase 37 U/L (22-51) 06/01/21 09:32 Nasal Adenovirus (PCR) NOT DETECTED 06/01/21 13:24 Nasal B. parapertussis DNA (PCR) NOT DETECTED 06/01/21 13:24 Nasal Coronavir 229E PCR NOT DETECTED 06/01/21 13:24 Nasal Coronavir HKU1 PCR NOT DETECTED 06/01/21 13:24 Nasal Coronavir NL63 PCR NOT DETECTED 06/01/21 13:24 Nasal Coronavir OC43 PCR NOT DETECTED 06/01/21 13:24 Nasal Enterovir/Rhinovir PCR NOT DETECTED 06/01/21 13:24 Nasal Influenza B PCR NOT DETECTED 06/01/21 13:24 Nasal Influenza A PCR NOT DETECTED 06/01/21 13:24 Nasal Parainfluen 1 PCR NOT DETECTED 06/01/21 13:24 Nasal Parainfluen 2 PCR NOT DETECTED 06/01/21 13:24 Nasal Parainfluen 3 PCR NOT DETECTED 06/01/21 13:24 Nasal Parainfluen 4 PCR NOT DETECTED 06/01/21 13:24 Nasal RSV (PCR) NOT DETECTED 06/01/21 13:24 Nasal B.pertussis DNA PCR NOT DETECTED 06/01/21 13:24 Nasal C.pneumoniae (PCR) NOT DETECTED 06/01/21 13:24 Christos Human Metapneumo PCR NOT DETECTED 06/01/21 13:24 Nasal M.pneumoniae (PCR) NOT DETECTED 06/01/21 13:24 Nasal SARS-CoV-2 (PCR) NOT DETECTED 06/01/21 13:24 Ethyl Alcohol < 5.0 mg/dL 06/01/21 09:32 Sepsis Event Note (H) - Evaluation Current Stage of Sepsis: Ruled out ABX Reporting Has patient been on IV antibiotics over the past 48 hours?: No Current Medications - Current Medications Current Medications: Active Medications Acetaminophen (Acetaminophen 325 Mg Tablet) 650 mg PO Q4HR PRN PRN Reason: Pain 1 to 4 Aspirin (Aspirin 325 Mg Tablet) 325 mg PO DAILYWM [facility] Last Admin: 06/02/21 08:41 Dose: 325 mg Atorvastatin Calcium (Atorvastatin 40 Mg Tablet) 40 mg PO QPM [facility] Enoxaparin Sodium (Enoxaparin 40 Mg/0.4 Ml Syringe) 40 mg SUBQ DAILY [facility] Last Admin: 06/02/21 08:41 Dose: 40 mg Guaifenesin (Guaifenesin/Dextromethorphan 10 Ml Udc) 10 ml PO Q6HR PRN PRN Reason: Cough Last Admin: 06/01/21 20:27 Dose: 10 ml Hydralazine HCl (Hydralazine Inj 20 Mg/Ml Vial) 10 mg IVP QID PRN PRN Reason: Hypertensive Emergency Non-Formulary Medication (Lisinopril [Zestril]) 10 mg PO DAILY [facility] Ondansetron HCl (Ondansetron 4 Mg/2 Ml Vial) 4 mg IVP Q6HR PRN PRN Reason: Nausea / Vomiting Pantoprazole Sodium (Pantoprazole 40 Mg Tablet) 40 mg PO QDAC [facility] Last Admin: 06/02/21 10:05 Dose: 40 mg Sodium Chloride (Sodium Chloride Flush 0.9% 10 Ml Syringe) 10 ml IVP PRN PRN PRN Reason: NEEDED PER PROVIDER ORDERS Sodium Chloride (Sodium Chloride Flush 0.9% 10 Ml Syringe) 10 ml IVP 0100,0900,1700 [facility] Last Admin: 06/02/21 10:05 Dose: 10 ml Lisinopril [Zestril] 10 mg PO DAILY 06/02/21
[2021-06-02] MEDS: lisinopriL 5 MG TABLET PO SCH ×2 (12:12→16:43)
[2021-06-02] MEDS: ATORVASTATIN 40 MG TABLET PO SCH (22:02)
[2021-06-03] MEDS: SODIUM CHLORIDE FLUSH 0.9% 10 ML SYRINGE IVP SCH ×4 (00:03→23:55)
[2021-06-03] MEDS: PANTOPRAZOLE 40 MG TABLET PO SCH (06:07)
[2021-06-03 06:19] LABS: BASOPHILS % (AUTO) 0.7 %; EOSINOPHILS # (AUTO) 0.1 10^3/uL (0.0-0.7); EOSINOPHILS % (AUTO) 1.7 %; HCT - HEMATOCRIT 41.9 % (42.0-52.0); HGB - HEMOGLOBIN 14.3 g/dL (14.0-18.0); LYMPHOCYTES % (AUTO) 17.7 %; MEAN CORPUSCULAR HEMOGLOBIN 30.9 pg (27.0-31.0); MEAN CORPUSCULAR HGB CONC 34.1 g/dL (32.0-36.0); MEAN CORPUSCULAR VOLUME 90.5 fL (80.0-94.0); MEAN PLATELET VOLUME 9.8 fL (7.4-11.4); MONOCYTES # (AUTO) 0.4 10^3/uL (0.0-1.0); MONOCYTES % (AUTO) 7.6 %; NEUTROPHILS # (AUTO) 3.9 10^3/uL (1.5-6.6); NEUTROPHILS % (AUTO) 72.1 %; PLT - PLATELET COUNT 203 10^3/uL (130-450); RED BLOOD COUNT 4.63 10^6/uL (4.70-6.10); RED CELL DISTRIBUTION WIDTH 12.4 % (12.0-15.0); WHITE BLOOD COUNT 5.4 x10^3/uL (4.8-10.8)
[2021-06-03 06:28] LABS: CALCIUM 8.6 mg/dL (8.5-10.3); CREATININE 0.8 mg/dL (0.6-1.2); POTASSIUM 4.2 mmol/L (3.5-5.0)
[2021-06-03] MEDS: lisinopriL 5 MG TABLET PO SCH ×2 (07:06→08:16)
[2021-06-03] MEDS: ENOXAPARIN 40 MG/0.4 ML SYRINGE SUBQ SCH (08:17)
[2021-06-03] MEDS: polyethylene glycoL 3350 17 GM PACKET PO SCH (08:17)
[2021-06-03] MEDS: ASPIRIN 325 MG TABLET PO SCH (08:17)
--- NOTE | 2021-06-03 17:44 | PROVIDER PROGRESS NOTE ---
Assessment/Plan - Problem List (1) Cerebrovascular accident (CVA) Qualifiers: CVA mechanism: unspecified Qualified Code(s): I63.9 - Cerebral infarction, unspecified (3) Hyponatremia Assessment/Plan: Resolved - Current Meds Current Meds: Current Medications Generic Name Dose Route Start Last Admin Trade Name Freq PRN Reason Stop Dose Admin Aspirin 325 mg 06/02/21 08:00 06/03/21 08:17 Aspirin 325 Mg Tablet PO 325 mg DAILYWM JUAN Administration Atorvastatin Calcium 40 mg 06/02/21 21:00 06/02/21 22:02 Atorvastatin 40 Mg Tablet PO 40 mg QPM JUAN Administration Enoxaparin Sodium 40 mg 06/02/21 09:00 06/03/21 08:17 Enoxaparin 40 Mg/0.4 Ml Syringe SUBQ 40 mg DAILY JUAN Administration Guaifenesin 10 ml 06/01/21 19:49 06/01/21 20:27 Guaifenesin/Dextromethorphan 10 Ml Udc PO 10 ml Q6HR PRN Administration Cough Lisinopril 10 mg 06/02/19 11:30 06/03/21 08:16 Lisinopril 5 Mg Tablet PO 10 mg DAILY JUAN Administration Pantoprazole Sodium 40 mg 06/02/21 09:00 06/03/21 06:07 Pantoprazole 40 Mg Tablet PO 40 mg QDAC JUAN Administration Polyethylene Glycol 17 gm 06/03/21 09:00 06/03/21 08:17 Polyethylene Glycol 3350 17 Gm Packet PO 17 gm DAILY JUAN Administration Sodium Chloride 10 ml 06/01/21 17:00 06/03/21 08:17 Sodium Chloride Flush 0.9% 10 Ml Syringe IVP 10 ml 0100,0900,1700 JUAN Administration - Lab Result Fish Bone Diagrams: 06/03/21 06:06 06/03/21 06:06 Objective Vital Signs: Vital Signs - 24 hr 06/02/21 06/03/21 06/03/21 20:58 00:03 06:10 Temperature 36.3 C L 36.4 C L 36.3 C L Heart Rate [ 74 69 70 Brachial] Respiratory 16 18 16 Rate Blood Pressure 125/61 120/63 129/68 [Right Brachial artery] O2 Saturation 98 95 96 06/03/21 06/03/21 07:38 11:53 Temperature 36.2 C L 36.8 C Heart Rate [ 63 71 Brachial] Respiratory 17 18 Rate Blood Pressure 132/66 H 131/64 H [Right Brachial artery] O2 Saturation 94 97 Oxygen O2 Source Room air I&O (Last 24 Hrs): Intake and Output Totals x24h 06/01/21 06/02/21 06/03/21 23:59 23:59 23:59 Intake Total 5398.721 8690.723 1330 Output Total 1200 950 Balance 479.839 8093.723 1330 - Results Results: Laboratory Results WBC 5.4 x10^3/uL (4.8-10.8) 06/03/21 06:06 RBC 4.63 10^6/uL (4.70-6.10) L 06/03/21 06:06 Hgb 14.3 g/dL (14.0-18.0) 06/03/21 06:06 Hct 41.9 % (42.0-52.0) L 06/03/21 06:06 MCV 90.5 fL (80.0-94.0) 06/03/21 06:06 MCH 30.9 pg (27.0-31.0) 06/03/21 06:06 MCHC 34.1 g/dL (32.0-36.0) 06/03/21 06:06 RDW 12.4 % (12.0-15.0) 06/03/21 06:06 Plt Count 203 10^3/uL (130-450) 06/03/21 06:06 MPV 9.8 fL (7.4-11.4) 06/03/21 06:06 Neut # (Auto) 3.9 10^3/uL (1.5-6.6) 06/03/21 06:06 Lymph # (Auto) 1.0 10^3/uL (1.5-3.5) L 06/03/21 06:06 [place] # (Auto) 0.4 10^3/uL (0.0-1.0) 06/03/21 06:06 Eos # (Auto) 0.1 10^3/uL (0.0-0.7) 06/03/21 06:06 Baso # (Auto) 0.0 10^3/uL (0.0-0.1) 06/03/21 06:06 Absolute Nucleated RBC 0.00 x10^3/uL 06/03/21 06:06 Nucleated RBC % 0.0 /100WBC 06/03/21 06:06 ESR 6 mm/Hr (0-20) 06/01/21 09:32 Sodium 136 mmol/L (135-145) 06/03/21 06:06 Potassium 4.2 mmol/L (3.5-5.0) 06/03/21 06:06 Chloride 103 mmol/L (101-111) 06/03/21 06:06 Carbon Dioxide 25 mmol/L (21-32) 06/03/21 06:06 Anion Gap 8.0 (6-13) 06/03/21 06:06 BUN 14 mg/dL (6-20) 06/03/21 06:06 Creatinine 0.8 mg/dL (0.6-1.2) 06/03/21 06:06 Estimated GFR (MDRD) 96 (>89) 06/03/21 06:06 Glucose 103 mg/dL (70-100) H 06/03/21 06:06 Calcium 8.6 mg/dL (8.5-10.3) 06/03/21 06:06 Magnesium 2.1 mg/dL (1.7-2.8) 06/01/21 09:32 Total Bilirubin 0.9 mg/dL (0.2-1.0) 06/01/21 09:32 AST 24 IU/L (10-42) 06/01/21 09:32 ALT 22 IU/L (10-60) 06/01/21 09:32 Alkaline Phosphatase 95 IU/L (42-121) 06/01/21 09:32 Total Protein 7.0 g/dL (6.7-8.2) 06/01/21 09:32 Albumin 4.4 g/dL (3.2-5.5) 06/01/21 09:32 Globulin 2.6 g/dL (2.1-4.2) 06/01/21 09:32 Albumin/Globulin Ratio 1.7 (1.0-2.2) 06/01/21 09:32 Triglycerides 49 mg/dL (-149) 06/02/21 05:14 Cholesterol 175 mg/dL (-199) 06/02/21 05:14 LDL Cholesterol, Calc 124 mg/dL (-129) 06/02/21 05:14 VLDL Cholesterol 10 mg/dL 06/02/21 05:14 HDL Cholesterol 41 mg/dL (60-) L 06/02/21 05:14 LDL/HDL Ratio 3.0 (<3.6) 06/02/21 05:14 Cholesterol/HDL Ratio 4.3 (<5.0) 06/02/21 05:14 Lipase 37 U/L (22-51) 06/01/21 09:32 Nasal Adenovirus (PCR) NOT DETECTED 06/01/21 13:24 Nasal B. parapertussis DNA (PCR) NOT DETECTED 06/01/21 13:24 Nasal Coronavir 229E PCR NOT DETECTED 06/01/21 13:24 Nasal Coronavir HKU1 PCR NOT DETECTED 06/01/21 13:24 Nasal Coronavir NL63 PCR NOT DETECTED 06/01/21 13:24 Nasal Coronavir OC43 PCR NOT DETECTED 06/01/21 13:24 Nasal Enterovir/Rhinovir PCR NOT DETECTED 06/01/21 13:24 Nasal Influenza B PCR NOT DETECTED 06/01/21 13:24 Nasal Influenza A PCR NOT DETECTED 06/01/21 13:24 Nasal Parainfluen 1 PCR NOT DETECTED 06/01/21 13:24 Nasal Parainfluen 2 PCR NOT DETECTED 06/01/21 13:24 Nasal Parainfluen 3 PCR NOT DETECTED 06/01/21 13:24 Nasal Parainfluen 4 PCR NOT DETECTED 06/01/21 13:24 Nasal RSV (PCR) NOT DETECTED 06/01/21 13:24 Nasal B.pertussis DNA PCR NOT DETECTED 06/01/21 13:24 Nasal C.pneumoniae (PCR) NOT DETECTED 06/01/21 13:24 Christos Human Metapneumo PCR NOT DETECTED 06/01/21 13:24 Nasal M.pneumoniae (PCR) NOT DETECTED 06/01/21 13:24 Nasal SARS-CoV-2 (PCR) NOT DETECTED 06/01/21 13:24 Ethyl Alcohol < 5.0 mg/dL 06/01/21 09:32 Sepsis Event Note (H) - Evaluation Current Stage of Sepsis: Ruled out
[2021-06-03] MEDS: ATORVASTATIN 40 MG TABLET PO SCH (20:33)
[2021-06-04 06:08] LABS: BASOPHILS % (AUTO) 0.5 %; EOSINOPHILS # (AUTO) 0.2 10^3/uL (0.0-0.7); EOSINOPHILS % (AUTO) 3.6 %; HCT - HEMATOCRIT 41.8 % (42.0-52.0); HGB - HEMOGLOBIN 14.3 g/dL (14.0-18.0); LYMPHOCYTES # (AUTO) 1.1 10^3/uL (1.5-3.5); LYMPHOCYTES % (AUTO) 23.9 %; MEAN CORPUSCULAR HEMOGLOBIN 30.7 pg (27.0-31.0); MEAN CORPUSCULAR HGB CONC 34.2 g/dL (32.0-36.0); MEAN CORPUSCULAR VOLUME 89.7 fL (80.0-94.0); MEAN PLATELET VOLUME 9.6 fL (7.4-11.4); MONOCYTES # (AUTO) 0.4 10^3/uL (0.0-1.0); MONOCYTES % (AUTO) 8.8 %; NEUTROPHILS # (AUTO) 2.8 10^3/uL (1.5-6.6); PLT - PLATELET COUNT 195 10^3/uL (130-450); RED BLOOD COUNT 4.66 10^6/uL (4.70-6.10); RED CELL DISTRIBUTION WIDTH 12.2 % (12.0-15.0); WHITE BLOOD COUNT 4.4 x10^3/uL (4.8-10.8)
[2021-06-04] MEDS: PANTOPRAZOLE 40 MG TABLET PO SCH (06:08)
[2021-06-04 06:22] LABS: CALCIUM 8.6 mg/dL (8.5-10.3); CREATININE 0.7 mg/dL (0.6-1.2); POTASSIUM 4.2 mmol/L (3.5-5.0)
[2021-06-04] MEDS: SODIUM CHLORIDE FLUSH 0.9% 10 ML SYRINGE IVP SCH (08:11)
[2021-06-04] MEDS: polyethylene glycoL 3350 17 GM PACKET PO SCH (08:11)
[2021-06-04] MEDS: ENOXAPARIN 40 MG/0.4 ML SYRINGE SUBQ SCH (08:11)
[2021-06-04] MEDS: ASPIRIN 325 MG TABLET PO SCH (08:11)
[2021-06-04] MEDS: lisinopriL 5 MG TABLET PO SCH (08:11)
[2021-06-04 11:57] VITALS: BP 137/69
--- NOTE | 2021-06-04 13:39 | Discharge Plan ---
Discharge Plan Problem Reviewed?: Yes Disposition: Home, Self Care Condition: Fair Prescriptions: Aspirin [Lenard] 325 mg PO DAILYWM #30 tablet Atorvastatin [Lipitor] 40 mg PO QPM #30 tablet Diet: Cardiac (Low-fat, low-salt diet) Shower Restrictions: No Driving Restrictions: Yes (No driving allowed due to stroke) Instruction Topics: Back Safety Into and Out Bed, Dysarthria, Dysarthria Improve Speech Health Concerns: You were hospitalized because you had a stroke. It is affected your speech, your right arm and right leg. You are on new medications to manage the stroke. The new prescriptions were sent to the [facility] in [place]. You should see your primary care provider for an office visit this week, who needs to give you a referral to attend outpatient physical therapy rehab, occupational therapy rehab and speech therapy rehab. You are not allowed to drive a vehicle or operate heavy machinery, because of your impairment from the stroke. A medical form was sent to the [facility] restricting you from driving, and if you are caught driving, you would be arrested. They take this very seriously. You will need to arrange for other transportation. When medically cleared, your provider will write a release to allow you to resume driving. Plan of Treatment: As above. Care Goals: Improvement in symptoms and stabilization are the goals. Assessment: Patient understands and is agreeable with the plan. Additional Instructions or Follow Up instructions: If you have new or worsening symptoms, call your PCP for advice, or all [phone] to come to the ER. Follow-Up Care: Outpatient Rehab - PT, Outpatient Rehab - OT, Outpatient Rehab - ST No Smoking: If you smoke, Please STOP! Call for help. Follow-up with: Leatha Willard ARNP [Primary Care Provider] -
--- NOTE | 2021-06-04 13:45 | DISCHARGE SUMMARY ---
Discharge Summary Admit Date: 06/01/21 Discharge Date: 06/04/21 Discharging Provider: Margaux Byrd MD Primary Care Provider: Leatha Willard NP Condition at Discharge: Fair Discharge Disposition: 01 Home, Self Care - HPI History of Present Illness: From the admission H&P of Calvin Montez NP: This is 71-yr old white male with significant medical history of HTN, who was brought by EMS, complaining of dysarthria and right sided weakness since yesterday. Pt report since yesterday afternoon, he cannot speak right. Now pt still has slurred speech. He also reports he cannot write with his right hand and feels weakness as well. Pt reports he has no problem to swallow meals. Pt reports he has no issue to walk far. Pt reports he is still smoking cigarettes but he denies using any alcohol. Pt also denies chest pain, headache, fever, chills, shortness of breath. CTA of head and neck was done in ED and showd no acute intracranial process. Routine laboratory testing was unremarkable except sodium 131. In ER, patient is afebrile, and is hemodynamically stable. We discussed care goals with the patient; patient hopes to be DNR. - HOSPITAL COURSE Hospital Course: (1) Cerebrovascular accident (CVA) CTA of head and neck revealed no acute process. EKG and telemetry showed sinus rhythm. Patient was given aspirin in the ER. TPA was not given at ER because of amount of time that had passed. He was continued on daily aspirin and Lipitor. An Echo was unremarkable. An MRI of brain did show a focal left basilar ganglia infarct, acute to subacute. Lipid panel showed an LDL of 124 (his target is < 70-100). He started working with PT and OT and Speech Therapy for his dysarthria. Swallowing was not affected. He was deemed to have a safe discharge plan, did not need transfer to a SNF, he could do ADLs, and had friends that would visit and help, but was told he may not drive a vehicle. He needs referral to outpatient PT, OT and ST. (2) HTN (hypertension) We continued his home Lisinopril dose, after allowing permissive HTN for a day. - ALLERGIES Allergies/Adverse Reactions: Allergies Allergy/AdvReac Type Severity Reaction Status Date / Time No Known Drug Allergies Allergy Verified 06/01/21 09:21 - MEDICATIONS Home Medications: Ambulatory Orders Medication Instructions Recorded Confirmed Lisinopril [Zestril] 10 mg PO DAILY 06/02/21 06/02/21 Aspirin [Lenard] 325 mg PO DAILYWM #30 tablet 06/04/21 Atorvastatin [Lipitor] 40 mg PO QPM #30 tablet 06/04/21 - PHYSICAL EXAM AT DISCHARGE General Appearance: positive: No acute distress, Alert Eyes Bilateral: positive: Normal inspection, EOMI ENT: positive: ENT inspection nml, No signs of dehydration Neck: positive: Nml inspection, No JVD Respiratory: positive: No respiratory distress, Breath sounds nml Cardiovascular: positive: Regular rate & rhythm, No murmur Abdomen: positive: Non-tender, Nml bowel sounds, No distention Skin: positive: Warm, Dry Extremities: positive: Non-tender, No pedal edema Neurologic/Psychiatric: positive: Oriented x3, Slurred/abnml speech, Other (R arm 4/5 strength) - LABS Result Diagrams: 06/04/21 06:01 06/04/21 06:01 - SEPSIS Current Stage of Sepsis: Ruled out - FOLLOW UP Follow Up: See PCP in 1-2 weeks for a hospital follow-up visit, and to be referred for outpatient PT, OT and Speech Therapy. - TIME SPENT Time Spent in Discharge (Minutes): 45
== END 2021-06-04 14:43 | disposition home or self-care (01) | DRG 65 ==
LOC: EDUNIT# → ED 09:11 → OBS 13:00 → MS2 13:48
PROVIDERS: ADMIT Nurse Practitioner Gerontology; ATTEND Internal Medicine
DX: I63.9 Cerebral infarction, unspecified (principal); G81.91 Hemiplegia, unspecified affecting right dominant side; E87.1 Hypo-osmolality and hyponatremia; R47.1 Dysarthria and anarthria; R29.703 NIHSS score 3; I25.10 Atherosclerotic heart disease of native coronary artery without angina pectoris; I10 Essential (primary) hypertension; Z66 Do not resuscitate; F17.210 Nicotine dependence, cigarettes, uncomplicated
CPT/HCPCS: 0202U; 36415; 70496; 70498; 70551; 80048; 80053; 80061; 80320; 83690; 83735; 85025; 85651; 92522; 93005; 93306; 97110; 97112; 97116; 97162; 97165; 97530; 99284; 99285; A9270; J1650; J2060; Q9967; 83721

== ENCOUNTER 2023-01-15 07:16 | Outpatient (CLI) | payer OTHER ==
[2023-01-15 14:33] LABS: BASOPHILS # (AUTO) 0.1 10^3/uL (0.0-0.1); BASOPHILS % (AUTO) 0.7 %; EOSINOPHILS # (AUTO) 0.3 10^3/uL (0.0-0.7); HCT - HEMATOCRIT 45.1 % (42.0-52.0); HGB - HEMOGLOBIN 14.2 g/dL (14.0-18.0); LYMPHOCYTES # (AUTO) 1.1 10^3/uL (1.5-3.5); LYMPHOCYTES % (AUTO) 14.8 %; MEAN CORPUSCULAR HEMOGLOBIN 29.2 pg (27.0-31.0); MEAN CORPUSCULAR HGB CONC 31.5 g/dL (32.0-36.0); MEAN CORPUSCULAR VOLUME 92.8 fL (80.0-94.0); MEAN PLATELET VOLUME 9.9 fL (7.4-11.4); MONOCYTES # (AUTO) 0.5 10^3/uL (0.0-1.0); MONOCYTES % (AUTO) 7.2 %; NEUTROPHILS # (AUTO) 5.4 10^3/uL (1.5-6.6); NEUTROPHILS % (AUTO) 72.1 %; PLT - PLATELET COUNT 337 10^3/uL (130-450); RED BLOOD COUNT 4.86 10^6/uL (4.70-6.10); RED CELL DISTRIBUTION WIDTH 12.9 % (12.0-15.0); WHITE BLOOD COUNT 7.5 x10^3/uL (4.8-10.8)
[2023-01-15 14:50] LABS: ALBUMIN 4.2 g/dL (3.2-5.5); ALBUMIN/GLOBULIN RATIO 1.8 (1.0-2.2); ALKALINE PHOSPHATASE 116 IU/L (42-121); ALT ALANINE AMINOTRANSFERASE 15 IU/L (10-60); AST ASPARTATE AMINOTRANSFERASE 15 IU/L (10-42); BILIRUBIN,TOTAL 0.4 mg/dL (0.2-1.0); BUN - BLOOD UREA NITROGEN 16 mg/dL (6-20); CALCIUM 9.3 mg/dL (8.5-10.3); CARBON DIOXIDE - CO2 30 mmol/L (21-32); CHLORIDE 105 mmol/L (101-111); CHOL/HDL RATIO 2.9 (<5.0); CHOLESTEROL 126 mg/dL; CREATININE 0.9 mg/dL (0.6-1.3); GFR - MDRD 83 (>89); GLUCOSE 111 mg/dL (74-104); HDL CHOLESTEROL 44 mg/dL; LDL CHOLESTEROL,CALCULATED 69 mg/dL; LDL/HDL RATIO 1.6 (<3.6); POTASSIUM 4.6 mmol/L (3.5-4.5); SODIUM 138 mmol/L (135-145); TOTAL PROTEIN 6.6 g/dL (6.4-8.9); TRIGLYCERIDES 64 mg/dL (48-352); VLDL CHOLESTEROL 13 mg/dL
== END 2023-01-15 07:17 | disposition home or self-care (01) ==
LOC: LAB.S 07:16
PROVIDERS: ATTEND Registered Nurse
DX: I10 Essential (primary) hypertension (principal); E78.5 Hyperlipidemia, unspecified
CPT/HCPCS: 36415; 80053; 80061; 83721; 85025

== ENCOUNTER 2023-06-03 08:07 | Day surgery (SDC) | payer OTHER ==
[2023-06-03] MEDS: LACTATED RINGERS 1,000 ML IV ONE (08:11)
--- NOTE | 2023-06-03 08:57 | ANESTHESIA ---
Pre-Anesthesia VS, & Labs - Diagnosis screening - Procedure colonoscopy Vital Signs: Temp Pulse Resp BP Pulse Ox O2 Flow Rate 36.7 C 93 18 165/77 H 97 06/03/23 08:21 06/03/23 08:21 06/03/23 08:21 06/03/23 08:21 06/03/23 08:21 Height: 5 ft 8 in Weight (kg): 70.4 kg Body Mass Index: 23.6 BMI Classification: Normal - NPO Other (prep as directed) Home Medications and Allergies Home Medications: Ambulatory Orders Aspirin [Adult Aspirin Regimen] 81 mg PO HS 05/31/23 Lisinopril [Zestril] 10 mg PO DAILY 06/02/21 Aspirin [Adult Aspirin Regimen] 81 mg PO HS 05/31/23 Allergies/Adverse Reactions: Allergies Allergy/AdvReac Type Severity Reaction Status Date / Time No Known Drug Allergies Allergy Verified 06/03/23 08:30 Anes History & Medical History - Anesthetic History Anesthesia Complications: reports: No previous complications - Medical History Cardiovascular: reports: Hypertension, High cholesterol Pulmonary: reports: None Gastrointestinal: reports: Colon polyps Urinary: reports: None Musculoskeletal: reports: None Endocrine/Autoimmune: reports: None Skin: reports: None Smoking Status: Current every day smoker - Surgical History General: reports: Colonoscopy Orthopedic: reports: Shoulder arthroplasty, Other Exam General: Alert, Oriented x3 Dental: WNL Mouth Opening: Greater than 4 Fingerbreadths Neck Mobility: Normal Mallampati classification: II Respiratory: Lungs clear Cardiovascular: Regular rate Plan Anesthesia Type: Total IV Consent for Procedure(s) Verified and Reviewed: Yes Code Status: Attempt Resuscitation ASA classification: 2-Mild systemic disease Is this case an emergency?: No
[2023-06-03] MEDS ORDERED: PROPOFOL 500 MG/50 ML 500 MG/50 ML VIAL ONE (09:02)
[2023-06-03] MEDS: LACTATED RINGERS 500 ML IV ONE (10:08)
[2023-06-03 10:13] VITALS: O2SAT 99
[2023-06-03 10:33] VITALS: BP 126/78
--- NOTE | 2023-06-03 15:18 | ANESTHESIA POST OP EVALUATION ---
Anesthesia Post Eval - Post Anesthesia Eval Vitals: Last Vital Signs Temp 36.7 C 06/03/23 10:28 Pulse 80 06/03/23 10:28 Resp 16 06/03/23 10:28 BP 126/78 06/03/23 10:28 Pulse Ox 99 06/03/23 10:28 O2 Flow Rate CV Function Including HR & BP: Stable Pain Control: Satisfactory Nausea & Vomiting: Negative Mental Status: Baseline Respiratory Status: Airway Patent Hydration Status: Satisfactory Anesthesia Complications: None
== END 2023-06-03 08:08 | disposition home or self-care (01) ==
LOC: SDS 08:07
PROVIDERS: ATTEND Surgery
PROC: 0DBN8ZZ Excision of Sigmoid Colon, Via Natural or Artificial Opening Endoscopic (ICD-10-PCS; 2023-06-03)
PROC: 0DBP8ZZ Excision of Rectum, Via Natural or Artificial Opening Endoscopic (ICD-10-PCS; principal; 2023-06-03 09:45)
DX: Z12.11 Encounter for screening for malignant neoplasm of colon (principal); K62.1 Rectal polyp; K63.5 Polyp of colon; K57.30 Diverticulosis of large intestine without perforation or abscess without bleeding; K64.1 Second degree hemorrhoids; Z87.891 Personal history of nicotine dependence; Z79.82 Long term (current) use of aspirin; Z79.899 Other long term (current) drug therapy
CPT/HCPCS: 45380; J7120